=== PATIENT | female | born 1985 ===

== ENCOUNTER 2023-07-05 09:30 | Inpatient (IN) | payer OTHER ==
[~2023-07-05] VITALS: Ht 165.1 cm; Wt 83.5 kg
[2023-07-05] MEDS ORDERED: YASMIN 28 TABL1 EACH PO (11:46)
[2023-07-11] MEDS ORDERED: PANTOPRAZOLE SO40 MG (14:48)
[2023-07-11] MEDS ORDERED: DROSPIRENONE-E1 EAC1 (14:49)
[2023-07-11 22:24] LABS: HEMATOCRIT 38.6 % (36.0-45.00); HEMOGLOBIN 12.2 g/dL (12.0-15.00); MEAN CELL VOLUME 87.7 fL (80.00-100.00); MEAN CORPUSCULAR HEMOGLOBIN 27.7 pg (27.00-32.0); MEAN CORPUSCULAR HGB CONC 31.6 g/dl (32.0-36.0); PLATELET COUNT 236 K/uL (150-450); RED BLOOD COUNT 4.41 M/uL (4.00-6.00); RED CELL DISTRIBUTION WIDTH 12.5 % (11.5-14.5)
[2023-07-12 07:44] LABS: HEMATOCRIT 32.5 % (36.0-45.00); MEAN CELL VOLUME 86.1 fL (80.00-100.00); MEAN CORPUSCULAR HEMOGLOBIN 29.1 pg (27.00-32.0); MEAN CORPUSCULAR HGB CONC 33.8 g/dl (32.0-36.0); PLATELET COUNT 204 K/uL (150-450); RED BLOOD COUNT 3.77 M/uL (4.00-6.00); RED CELL DISTRIBUTION WIDTH 12.4 % (11.5-14.5)
[2023-07-12 08:40] LABS: ALBUMIN 2.7 gm/dL (3.4-5.0); CALCIUM 8.3 mg/dL (8.5-10.1); CREATININE SERUM 0.66 mg/dL (0.55-1.02); GFR 100.77; POTASSIUM 3.59 mEq/L (3.5-5.1)
[2023-07-13 06:58] LABS: HEMATOCRIT 31.1 % (36.0-45.00); MEAN CELL VOLUME 87.2 fL (80.00-100.00); MEAN CORPUSCULAR HEMOGLOBIN 28.8 pg (27.00-32.0); PLATELET COUNT 182 K/uL (150-450); RED BLOOD COUNT 3.57 M/uL (4.00-6.00); RED CELL DISTRIBUTION WIDTH 12.4 % (11.5-14.5)
[2023-07-13 07:12] LABS: CALCIUM 8.1 mg/dL (8.5-10.1); CREATININE SERUM 0.72 mg/dL (0.55-1.02); GFR 91.14; POTASSIUM 3.39 mEq/L (3.5-5.1)
[2023-07-13 07:28] LABS: HEMOGLOBIN 10.3 g/dL (12.0-15.00)
[2023-07-13] MEDS ORDERED: TRAMADOL HCL50 MG PO (15:59)
[2023-07-13] MEDS ORDERED: INTESTINEX680 M1 PO (16:00)
[2023-07-13] MEDS ORDERED: HYOSCYAMINE0.125 M1 SL (16:00)
== END 2023-07-13 17:10 | disposition home or self-care (01) | DRG 331 ==
LOC: O/R 07-11 07:36 → SURH 07-11 07:36 → SURG 07-11 09:30 → SURH 07-11 18:38
PROVIDERS: Internal Medicine Geriatric Medicine; Obstetrics & Gynecology Gynecology; Urology; ADMIT Surgery; ATTEND Surgery
PROC: 0TN64ZZ Release Right Ureter, Percutaneous Endoscopic Approach (ICD-10-PCS; 2023-07-11)
PROC: 0DTJ4ZZ Resection of Appendix, Percutaneous Endoscopic Approach (ICD-10-PCS; 2023-07-11)
PROC: 0TN74ZZ Release Left Ureter, Percutaneous Endoscopic Approach (ICD-10-PCS; 2023-07-11)
PROC: 0DN84ZZ Release Small Intestine, Percutaneous Endoscopic Approach (ICD-10-PCS; 2023-07-11)
PROC: 0UT94ZZ Resection of Uterus, Percutaneous Endoscopic Approach (ICD-10-PCS; 2023-07-11)
PROC: 0UT74ZZ Resection of Bilateral Fallopian Tubes, Percutaneous Endoscopic Approach (ICD-10-PCS; 2023-07-11)
PROC: 0UT24ZZ Resection of Bilateral Ovaries, Percutaneous Endoscopic Approach (ICD-10-PCS; 2023-07-11)
PROC: 0T788DZ Dilation of Bilateral Ureters with Intraluminal Device, Via Natural or Artificial Opening Endoscopic (ICD-10-PCS; 2023-07-11)
PROC: 0DTN4ZZ Resection of Sigmoid Colon, Percutaneous Endoscopic Approach (ICD-10-PCS; principal; 2023-07-11 14:30)
PROC: 0DBP4ZZ Excision of Rectum, Percutaneous Endoscopic Approach (ICD-10-PCS; 2023-07-11 14:30)
PROC: 06BY4ZC Excision of Hemorrhoidal Plexus, Percutaneous Endoscopic Approach (ICD-10-PCS; 2023-07-11 14:30)
DX: N80.50 Endometriosis of intestine, unspecified (principal); N80.519 Endometriosis of the rectum, unspecified depth; N80.201 Endometriosis of right fallopian tube, unspecified depth; K64.5 Perianal venous thrombosis; N94.5 Secondary dysmenorrhea; N13.5 Crossing vessel and stricture of ureter without hydronephrosis; N73.6 Female pelvic peritoneal adhesions (postinfective); N99.4 Postprocedural pelvic peritoneal adhesions; N72 Inflammatory disease of cervix uteri